=== PATIENT | female | born 1990 | race American Indian/Alaskan Native ===

== ENCOUNTER → 2018-10-29 | Outpatient (CLI) | payer OTHER | END | disposition home or self-care (01) | LOC: LAB 14:17 → LAB SHORT 14:17 | PROVIDERS: Family Medicine | DX: O09.91 Supervision of high risk pregnancy, unspecified, first trimester (principal); Z3A.11 11 weeks gestation of pregnancy | CPT/HCPCS: G0123 ==

== ENCOUNTER → 2018-11-12 | Outpatient (CLI) | payer OTHER ==
[2018-11-14 00:12] LABS: CHLAMYDIA TRACHOMATIS, NAA Negative (Negative); NEISSERIA GONORRHOEAE, NAA Negative (Negative)
== END | disposition home or self-care (01) ==
LOC: LAB 17:58 → LAB SHORT 17:58
PROVIDERS: Family Medicine
DX: O09.91 Supervision of high risk pregnancy, unspecified, first trimester (principal); O24.911 Unspecified diabetes mellitus in pregnancy, first trimester; E11.9 Type 2 diabetes mellitus without complications; Z3A.13 13 weeks gestation of pregnancy
CPT/HCPCS: 82043; 87086; 87491; 87591